=== PATIENT | female | born 1960 | race Caucasian/White ===

== ENCOUNTER → 2016-08-10 | Outpatient (CLI) | payer BC ==
--- NOTE | 2016-08-11 08:02 | XR ---
EXAMINATION TYPE: XR chest 2V DATE OF EXAM: 08/10/2016 COMPARISON: NONE TECHNIQUE: PA and lateral views submitted. HISTORY: Hyperparathyroidism FINDINGS: The lungs are clear and there is no pneumothorax, pleural effusion, or focal pneumonia. Mild hyperi nflation of the lungs. Mild hypertrophic change of the spine. IMPRESSION: 1. No acute process. Mild hyperinflation of the lungs can be associated with COPD. Correlate clinical ly.
== END | disposition home or self-care (01) ==
LOC: RADXRMAIN 16:10
PROVIDERS: ATTEND Physician Assistant
DX: E21.3 Hyperparathyroidism, unspecified (principal); R91.8 Other nonspecific abnormal finding of lung field
CPT/HCPCS: 71020

== ENCOUNTER → 2016-08-20 | Outpatient (CLI) | payer BC ==
--- NOTE | 2016-08-20 07:56 | US ---
EXAMINATION TYPE: US thyroid st tissue head/neck DATE OF EXAM: 08/20/2016 COMPARISON: Previous study dated 01/09/2016. CLINICAL HISTORY: N80.9 Endometriosis, E21.3 Hyperparathyroidism. GLAND SIZE: Right Lobe: 2.5 x 1.0 x 0.8 cm Overall Parenchyma: homogenous Left Lobe: 2.7 x 0.6 x 0.8 cm Overall Parenchyma: homogeneous Isthmus Thickness: 0.2 cm NODULES RIGHT: # of nodules measured on right: 0 LEFT: # of nodules measured on left: 1 1. 0.4 X 0.2 x 0.4 cm anechoic cystic nodule at the upper pole with well-defined margins; . This n odule is wider than tall and shows no intranodular vascularity. Prior size: 0.5 x 0.2 x 0.5 cm ISTHMUS: # of nodules measured in the isthmus: 0 Bilateral neck scanned, no evidence of lymphadenopathy. IMPRESSION: STABLE LEFT-SIDED THYROID NODULE.
--- NOTE | 2016-08-20 07:57 | US ---
EXAMINATION TYPE: US pelvis complete transvag DATE OF EXAM: 08/20/2016 COMPARISON: NONE CLINICAL HISTORY: N80.9 Endometriosis, E21.3 Hyperparathyroidism. TECHNIQUE: Transvaginal (TV) and Transabdominal (TA) Date of LMP: 10 years ago EXAM MEASUREMENTS: Uterus: 5.0 x 2.5 x 3.4 cm Endometrial Stripe: 0.2 cm Right Ovary: 1.5 x 1.1 x 1.3 cm Left Ovary: 1.5 x 1.0 x 1.6 cm 1. Uterus: Anteverted wnl 2. Endometrium: wnl 3. Right Ovary: wnl 4. Left Ovary: wnl 5. Bilateral Adnexa: wnl 6. Posterior cul-de-sac: wnl IMPRESSION: NORMAL PELVIC ULTRASOUND.
== END | disposition home or self-care (01) ==
LOC: RADUSWWP 06:49
PROVIDERS: ATTEND Family Medicine
DX: E04.1 Nontoxic single thyroid nodule (principal); E21.3 Hyperparathyroidism, unspecified; N80.0 Endometriosis of uterus
CPT/HCPCS: 76536; 76830; 76856

== ENCOUNTER → 2016-08-26 | Outpatient (CLI) | payer BC ==
--- NOTE | 2016-09-02 08:12 | MM ---
Reason for exam: screening (asymptomatic). Last mammogram was performed 2 years and 5 months ago. History: Patient is postmenopausal and is nulliparous. Family history of premenopausal breast cancer in paternal cousin and premenopausal breast cancer in paternal aunt. MG Screening Mammo w CAD Bilateral CC and MLO view(s) were taken. Prior study comparison: April 03, 2014, mammogram, performed at [facility]. The breast tissue is extremely dense which could obscure a lesion on mammography. There is chronic nodularity in the left breast. No significant changes when compared with prior studies. ASSESSMENT: Benign, BI-RAD 2 RECOMMENDATION: Routine screening mammogram of both breasts in 1 year.
== END ==
LOC: RADMAMWWP 15:50
PROVIDERS: ATTEND Family Medicine
DX: Z12.31 Encounter for screening mammogram for malignant neoplasm of breast (principal)

== ENCOUNTER → 2017-05-21 | Outpatient (CLI) | payer BC ==
--- NOTE | 2017-05-21 13:07 | US ---
EXAMINATION TYPE: US thyroid st tissue head/neck DATE OF EXAM: 05/21/2017 COMPARISON: US 08/20/2016 CLINICAL HISTORY: Hyperparathyroidism, follow up to previous nodules. Patient taking thyroid medicati on GLAND SIZE: Right Lobe: 2.6 x 0.8 x 0.9 cm Overall Parenchyma: homogenous Left Lobe: 2.3 x 0.6 x 0.9 cm Overall Parenchyma: homogeneous Isthmus Thickness: 0.2 cm NODULES RIGHT: # of nodules measured on right: 0 LEFT: # of nodules measured on left: 1 1. 0.5 X 0.2 x 0.4 cm hypoechoic cystic nodule at the mid pole with well-defined margins; . This n odule is wider than tall and shows no intranodular vascularity. Prior size: 0.4 x 0.2 x 0.4 cm ISTHMUS: # of nodules measured in the isthmus: 0 Bilateral neck scanned, no evidence of lymphadenopathy. IMPRESSION: Minimal change in the subcentimeter thyroid nodule previously identified within the left lobe.
--- NOTE | 2017-05-22 13:09 | NM ---
EXAMINATION TYPE: NM parathyroid w/spect DATE OF EXAM: 05/21/2017 COMPARISON: Ultrasound neck 05/21/2017, prior parathyroid scan dated 03/04/2015 HISTORY: Hyperparathyroidism TECHNIQUE: Following administration of 26.0 mCi Tc99m Sestamibi. Anterior projection images of the neck and ches t were obtained 10 minutes and 3 hours post injection. SPECT images of the neck and chest were obtai mazin and reconstructed in three axes. FINDINGS: Thyroid tracer washout: Delayed images demonstrate near-complete tracer washout from the thyroid. Parathyroid uptake: None. The two-hour delayed images do not demonstrate any focal abnormal persisten t uptake in the region of the parathyroid glands to suggest parathyroid adenoma. Uptake in the thyroid bed is similar to previous exams. There is suggestion of some radio pharmaceuti marzena uptake inferior to the right lobe of the thyroid gland IMPRESSION: No evident parathyroid adenoma. Consider contrast-enhanced chest CT for evaluation of additional thyr oid uptake on immediate imaging inferior to right lobe of the gland.
== END ==
LOC: RADNMMAIN 11:36
PROVIDERS: ATTEND Surgery
DX: R10.2 Pelvic and perineal pain (principal); E21.3 Hyperparathyroidism, unspecified
CPT/HCPCS: 76536; 78071; A9500

== ENCOUNTER → 2019-01-05 | Outpatient (CLI) | payer BC ==
--- NOTE | 2019-01-06 10:05 | BD ---
EXAMINATION TYPE: Axial Bone Density DATE OF EXAM: 01/05/2019 COMPARISON: 01.08.2016 CLINICAL HISTORY: 59 YR OLD FEMALE....ICD-10 CODE: Z78.0 MENOPAUSAL Height: 61.2 Weight: 113 FRAX RISK QUESTIONS: Current Tobacco Use: YES RISK FACTORS HISTORY OF: Active: YES Postmenopausal woman: YES AT ABOUT 47 YRS OLD, ENDOMETRIOSIS . Hyperparathyroidism: NO Adrenal Insufficiency: NO MEDICATIONS: Thyroid Medications: YES, SYNTHROID 20+ YRS Additional Medications: TRAZODONE, VIT D AND CALCIUM , MAGNESIUM Additional History: ANXIETY EXAM MEASUREMENTS: Bone mineral densitometry was performed using the [employer]. Bone mineral density as measured about the Lumbar spine is: ----- L1-L4(G/cm2): 1.043 T Score Values are as follows: ----- L1: -1.0 ----- L2: -1.3 ----- L3: -1.1 ----- L4: -1.4 ----- L1-L4: -1.1 Bone mineral density has: REMAINED THE SAME 0.0% since study of: 01.08.2016 Bone mineral density about the R hip (g/cm2): 0.808 Bone mineral density about the L hip (g/cm2): 0.782 T Score values are as follows: -----R Neck: -1.9 -----L Neck: -2.0 -----R Total: -1.6 -----L Total: -1.8 Bone mineral density has: Decreased -4.2% since study of: 01.08.2016 FRAX%s: THERE IS A 8.6% CHANCE FOR A MAJOR OSTEOPOROTIC FX AND A 2.0% FOR HIP.....PROBABILITY FOR F X IN 10 YRS TIME IMPRESSION: Osteopenia (T Score between -2.5 and -1). There is slightly increased risk of fracture and the patient may be considered for treatment. Re-Screen 2-5 years. NOTE: T-SCORE=SD OF THE YOUNG ADULT MEAN.
--- NOTE | 2019-01-09 10:43 | MM ---
Reason for exam: screening (asymptomatic). Last mammogram was performed 2 years and 4 months ago. History: Patient is postmenopausal and is nulliparous. Family history of premenopausal breast cancer in paternal cousin and premenopausal breast cancer in paternal aunt. Physical Findings: A clinical breast exam by your physician is recommended on an annual basis and results should be correlated with mammographic findings. MG Screening Mammo w CAD Bilateral CC and MLO view(s) were taken. Prior study comparison: August 26, 2016, bilateral MG screening mammo w CAD. April 03, 2014, mammogram, performed at [facility]. The breast tissue is heterogeneously dense. This may lower the sensitivity of mammography. There is chronic nodularity in the left breast. No significant changes when compared with prior studies. ASSESSMENT: Negative, BI-RAD 1 RECOMMENDATION: Routine screening mammogram of both breasts in 1 year.
== END | disposition home or self-care (01) ==
LOC: RADMAMWWP 15:31
PROVIDERS: ATTEND Family Medicine
DX: Z12.31 Encounter for screening mammogram for malignant neoplasm of breast (principal); M85.80 Other specified disorders of bone density and structure, unspecified site; Z78.0 Asymptomatic menopausal state
CPT/HCPCS: 77067; 77080

== ENCOUNTER 2019-02-24 12:52 | Day surgery (SDC) | payer BC ==
[2019-02-17 12:18] VITALS: BMI 21.0
[~2019-02-24 12:52] MED LIST: LACTATED RINGERS 1,000 ML IV SCH; LIDOCAINE 1% 20 ML VIAL (10MG/ML) FOR IV START INTRADERMA PRN
[2019-02-24 13:42] VITALS: RESP 16; TEMP 97.1
[2019-02-24] MEDS ORDERED: PROPOFOL 10 MG/ML 20 ML VIAL IV ONE (14:43)
--- NOTE | 2019-02-24 14:59 | P.PCN ---
Date of Procedure: 02/24/19 Procedure(s) Performed: BRIEF HISTORY: Patient is a 59-year-old pleasant female scheduled for an elective colonoscopy as a part of screening for colon rectal neoplasia. PROCEDURE PERFORMED: Colonoscopy. PREOPERATIVE DIAGNOSIS: Screening for colon cancer. IV sedation per Anesthesia. PROCEDURE: After informed consent was obtained, the patient, was brought into the endoscopy unit. IV sedation was administered by Anesthesia under continuous monitoring. Digital rectal examination was normal. Initially the Olympus CF-160 flexible video colonoscope was then inserted in the rectum, gradually advanced into the cecum without any difficulty. Careful examination was performed as the scope was gradually being withdrawn. Ileocecal valve and the appendiceal orifice were visualized and appeared normal. Prep was excellent. Mucosa of the cecum, ascending colon, transverse colon, descending colon, sigmoid colon, and rectum appeared normal. Retroflexion was performed in the rectum and no lesions were seen. The patient tolerated the procedure well. IMPRESSION: Normal-appearing colon from rectum to cecum with no evidence of colorectal neoplasia . RECOMMENDATIONS: Findings of this examination were discussed with the patient is a family. She was advised to have a repeat screening colonoscopy in 10 years..
[2019-02-24 15:22] VITALS: BP 116/68; PULSE 53
== END 2019-02-24 15:57 | disposition home or self-care (01) ==
LOC: ORWHC2ENDO 12:52
PROVIDERS: ATTEND Internal Medicine Gastroenterology
DX: Z12.11 Encounter for screening for malignant neoplasm of colon (principal); E89.0 Postprocedural hypothyroidism; Z79.890 Hormone replacement therapy; Z79.899 Other long term (current) drug therapy; Z98.890 Other specified postprocedural states
CPT/HCPCS: J2704; G0121; 45378

== ENCOUNTER → 2021-01-07 | Outpatient (CLI) | payer BC ==
--- NOTE | 2021-01-08 16:53 | BD ---
EXAMINATION TYPE: Axial Bone Density DATE OF EXAM: 01/07/2021 COMPARISON: 2019 CLINICAL HISTORY: Postmenopausal screening Height: 63 Weight: 111.7 FRAX RISK QUESTIONS: Alcohol (3 or more units per day): NO Family History (Parent hip fracture): NO Glucocorticoids (More than 3mos): NO (Ex: prednisone, prednisolone, methylprednisolone, dexamethasone, and hydrocortisone). History of Fracture in Adulthood: YES Secondary Osteoporosis: 1. Type 1 Diabetes: NO 2. Hyperthyroidism: NO 3. Menopause before 45: NO 4. Malnutrition: NO 5. Chronic liver disease: NO Rheumatoid Arthritis: NO Current Tobacco Use: YES RISK FACTORS HISTORY OF: Surgery to Spine/Hip(right/left)/Wrist (right/left): NO Family History of Osteoporosis: NO Active: YES Diet low in dairy products/other sources of calcium: NO Postmenopausal woman: YES Take estrogen and/or progesterone medications: NO Lost more than 2 inches in height since high school: NO Frequent falls: NO Poor Health: NO Hyperparathyroidism: YES Adrenal Insufficiency: NO MEDICATIONS: How Long: Thyroid Medications: YES Which medication: L\THYROXINE How Long: ABOUT 15 YEARS Osteoporosis Medications: NO Additional Medications: L\THYROXINE, FORREST CALCET, TRAZODONE Additional History: EXAM MEASUREMENTS: Bone mineral densitometry was performed using the [employer] System. Bone mineral density as measured about the Lumbar spine is: ----- L1-L4(G/cm2): 0.980 T Score Values are as follows: ----- L2: -1.8 ----- L3: -1.7 ----- L4: -1.8 ----- L1-L4: -1.7 Bone mineral density has: DECREASED -5.8% since study of: 2018 Bone mineral density about the R hip (g/cm2): 0.726 Bone mineral density about the L hip (g/cm2): 0.723 T Score values are as follows: -----R Neck: -2.2 -----L Neck: -2.3 -----R Total: -1.9 -----L Total: -2.0 Bone mineral density has: DECREASED -4.8 % since study of: 2019 IMPRESSION: Osteopenia (T Score between -2.5 and -1). There is slightly increased risk of fracture and the patient may be considered for treatment. Re-Screen 2-5 years. NOTE: T-SCORE=SD OF THE YOUNG ADULT MEAN.
--- NOTE | 2021-01-09 11:30 | MM ---
Reason for exam: screening (asymptomatic). Last mammogram was performed 2 years ago. History: Patient is postmenopausal and is nulliparous. Family history of breast cancer in paternal cousin, premenopausal breast cancer in paternal cousin, and premenopausal breast cancer in paternal aunt. Physical Findings: A clinical breast exam by your physician is recommended on an annual basis and results should be correlated with mammographic findings. MG Screening Mammo w CAD Bilateral CC and MLO view(s) were taken. Prior study comparison: January 05, 2019, bilateral MG screening mammo w CAD. August 26, 2016, bilateral MG screening mammo w CAD. The breast tissue is heterogeneously dense. This may lower the sensitivity of mammography. There is chronic nodularity in the left breast. No significant changes when compared with prior studies. ASSESSMENT: Benign, BI-RAD 2 RECOMMENDATION: Routine screening mammogram of both breasts in 1 year. Patient should continue monthly self breast exams. A negative report should not preclude additional follow up of suspicious palpable abnormalities.
== END | disposition home or self-care (01) ==
LOC: RADMAMWWP 15:49
PROVIDERS: ATTEND Family Medicine
DX: Z12.31 Encounter for screening mammogram for malignant neoplasm of breast (principal); M81.0 Age-related osteoporosis without current pathological fracture; Z78.0 Asymptomatic menopausal state; Z80.3 Family history of malignant neoplasm of breast
CPT/HCPCS: 77067; 77080

== ENCOUNTER → 2021-01-09 | Outpatient (CLI) | payer BC ==
--- NOTE | 2021-01-09 14:23 | US ---
EXAMINATION TYPE: US pelvis complete transvag DATE OF EXAM: 01/09/2021 COMPARISON: NONE CLINICAL HISTORY: R10.2 Pelvic and perineal pain. TECHNIQUE: Transvaginal (TV) and Transabdominal (TA) . Transabdominal sonographic images of the pel vis were acquired. Transvaginal sonographic images were medically necessary to better assess the fol lowing anatomy: Ovaries EXAM MEASUREMENTS: Uterus: 5.3x3.3x1.4 cm Endometrial Stripe: 0.2 cm Large amount of bowel seen. 1. Uterus: Anteverted wnl 2. Endometrium: wnl 3. Right Ovary: Obscured by overlying bowel gas 4. Left Ovary: Obscured by overlying bowel gas 5. Bilateral Adnexa: Obscured by overlying bowel gas 6. Posterior cul-de-sac: wnl IMPRESSION: 1. Exam limited due to excessive bowel gas. 2. Limited portions of the pelvis visualized are unremarkable
== END | disposition home or self-care (01) ==
LOC: RADUSWWP 13:45
PROVIDERS: ATTEND Family Medicine
DX: R10.2 Pelvic and perineal pain (principal)
CPT/HCPCS: 76830; 76856